=== PATIENT | male | born 1955 | race Caucasian/White ===

== ENCOUNTER 2019-02-23 12:16 | Emergency (ER) | END 2019-02-23 12:54 | disposition home or self-care (01) | DX: M19.90 Unspecified osteoarthritis, unspecified site (principal); Z79.1 Long term (current) use of non-steroidal anti-inflammatories (NSAID) | CPT/HCPCS: 96372; 99283; J1885 ==

== ENCOUNTER 2019-11-23 04:46 | Emergency (ER) | payer MEDICARE, OTHER ==
[~2019-11-23] VITALS: Ht 165.1 cm; Wt 70.3 kg
[~2019-11-23 04:46] MED LIST: IBUP-1953 PO
--- NOTE | 2019-11-23 05:05 | NUR ---
Patient presents to ER with c/o L hip pain /lower back pain since yesterday. States " Its sciatica".
[2019-11-23] MEDS ORDERED: HYDROCODONE/APAP 10-325 MG TABLET PO ONE (05:15)
[2019-11-23] MEDS ORDERED: ONDANSETRON ODT 4 MG TAB.RAPDIS SL ONE (05:15)
[2019-11-23] MEDS ORDERED: ONDANSETRON ODT 4 MG TAB.RAPDIS ONE (05:23)
[2019-11-23] MEDS ORDERED: HYDROCODONE/APAP 10-325 MG TABLET ONE (05:23)
--- NOTE | 2019-11-23 05:24 | NUR ---
Patient discharged to home in stable condition. Written and verbal after care instructions given. Patient verbalizes understanding of instructions. Stressed follow up or return to ER for worsening s/s. Ambulated from ER with stable gait. All belongings with patient.
--- NOTE | 2019-11-23 05:25 | NUR ---
Patient denies being homeless, but was provided with food/water. He had appropriate clothing.
[2019-11-23 05:26] VITALS: BP 135/81
== END 2019-11-23 05:33 | disposition home or self-care (01) ==
LOC: ER 04:50
DX: M54.42 Lumbago with sciatica, left side (principal); M19.90 Unspecified osteoarthritis, unspecified site; R03.0 Elevated blood-pressure reading, without diagnosis of hypertension; Z59.0 Homelessness
CPT/HCPCS: A4663; Q0162

== ENCOUNTER 2019-12-02 16:48 | Emergency (ER) | payer MEDICARE, OTHER ==
[~2019-12-02] VITALS: Ht 180.3 cm; Wt 70.3 kg
--- NOTE | 2019-12-02 17:46 | NUR ---
Patient was given written and verbal discharge instructions. Patient verbalizes understanding & compliance of instructions. Patient is ambulatory with steady gait. Patient refuses offer of long-term placement. Patient was given a list of available shelters in surrounding area.
== END 2019-12-02 17:54 | disposition home or self-care (01) ==
LOC: ER 16:50
DX: B86 Scabies (principal); Z59.0 Homelessness
CPT/HCPCS: A4663

== ENCOUNTER 2019-12-08 21:07 | Emergency (ER) | payer MEDICARE, OTHER ==
[~2019-12-08] VITALS: Ht 180.3 cm; Wt 68.0 kg
[2019-12-08] MEDS ORDERED: PERM60CR19 TP (21:16)
--- NOTE | 2019-12-08 21:36 | NUR ---
Patient given written and verbal discharge instructions. Patient verbalizes understanding of instructions. Patient is ambulatory with steady gait. Refuses offer of care home placement. Patient given list of available shelters in surrounding area.
[2019-12-08 21:46] VITALS: BP 140/99
== END 2019-12-08 21:48 | disposition home or self-care (01) ==
LOC: ER 21:07
DX: F22 Delusional disorders (principal); Z59.0 Homelessness
CPT/HCPCS: A4663

== ENCOUNTER 2019-12-23 01:53 | Emergency (ER) | payer MEDICARE, OTHER ==
[~2019-12-23] VITALS: Ht 180.3 cm; Wt 70.3 kg
[~2019-12-23 01:53] MED LIST changes: +PERM60CR19 TP
--- NOTE | 2019-12-23 02:10 | NUR ---
Dr. Nicolas at bedside for MSE.
[2019-12-23] MEDS ORDERED: TDAP DIPH,PERTUSS,TET VAC/PF 0.5 ML DISP.SYRIN IM ONE ×2 (02:15→02:21)
[2019-12-23] MEDS ORDERED: NEOMY/BACITRA/POLYMYXIN B OINT UD PACKET TP ONE (02:28)
--- NOTE | 2019-12-23 02:38 | NUR ---
Patient given written and verbal discharge instructions. Patient verbalizes understanding of instructions. Patient is ambulatory with steady gait. Refuses offer of senior living placement. Patient given list of available shelters in surrounding area. Patient provided with sandwich per pt request, refused all other services available at this time. Patient out of ER with steady gait, no acute signs of distress, VSS, all belongings taken.
[2019-12-23 02:40] VITALS: BP 148/97
== END 2019-12-23 02:40 | disposition home or self-care (01) ==
LOC: ER 01:55
DX: L03.114 Cellulitis of left upper limb (principal); L98.1 Factitial dermatitis; F22 Delusional disorders; Z59.0 Homelessness; R03.0 Elevated blood-pressure reading, without diagnosis of hypertension
CPT/HCPCS: 90715; A4663

== ENCOUNTER 2020-03-19 00:32 | Emergency (ER) | payer MEDICARE, OTHER ==
[~2020-03-19] VITALS: Ht 177.8 cm; Wt 68.0 kg
[2020-03-19] MEDS ORDERED: KETOROLAC TROMETHAMINE 30 MG INJ IM ONE (01:00)
[2020-03-19] MEDS ORDERED: KETOROLAC TROMETHAMINE 30 MG INJ ONE (01:08)
--- NOTE | 2020-03-19 01:09 | NUR ---
MSE COMPLETED,PT D/C'D HOME,A CI/RX X2 GIVEN. PT AMBULATED W/O DIFF, REFUSED HOMELESS SHELTOR HAND OUT/HELP.
[2020-03-19 01:11] VITALS: BP 148/95
== END 2020-03-19 01:12 | disposition home or self-care (01) ==
LOC: ER 00:39
DX: M54.32 Sciatica, left side (principal); Z59.0 Homelessness; M19.90 Unspecified osteoarthritis, unspecified site
CPT/HCPCS: 96372; 99283; J1885; A4663

== ENCOUNTER 2020-04-19 03:05 | Emergency (ER) | payer MEDICARE, OTHER ==
[~2020-04-19] VITALS: Ht 182.9 cm; Wt 68.0 kg
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
--- NOTE | 2020-04-19 03:26 | NUR ---
Dr. Park at bedside for MSE.
[2020-04-19] MEDS ORDERED: ACETAMINOPHEN 325 MG TABLET PO ONE (03:30)
[2020-04-19] MEDS ORDERED: ACETAMINOPHEN 325 MG TABLET ONE (03:34)
--- NOTE | 2020-04-19 04:26 | NUR ---
Patient discharged to home in stable condition. Written and verbal after care instructions given. Patient verbalizes understanding of instructions. Stressed follow up or return to ER for worsening s/s.P t ambulated out of the ER with steady gait. All belongings with pt.
[2020-04-19 04:27] VITALS: BP 140/88
== END 2020-04-19 04:27 | disposition home or self-care (01) ==
LOC: ER 03:10
DX: S46.911A Strain of unspecified muscle, fascia and tendon at shoulder and upper arm level, right arm, initial encounter (principal); S83.91XA Sprain of unspecified site of right knee, initial encounter; S70.02XA Contusion of left hip, initial encounter; V18.4XXA Pedal cycle driver injured in noncollision transport accident in traffic accident, initial encounter; Y93.55 Activity, bike riding; Y92.410 Unspecified street and highway as the place of occurrence of the external cause; Z59.0 Homelessness; R03.0 Elevated blood-pressure reading, without diagnosis of hypertension
CPT/HCPCS: 73030; 73502; 73560; A4663

== ENCOUNTER 2020-05-04 04:34 | Emergency (ER) | payer MEDICARE, OTHER ==
[~2020-05-04] VITALS: Ht 177.8 cm; Wt 68.0 kg
--- NOTE | 2020-05-04 04:50 | NUR ---
MD CHARU ENCARNACION in room to do MSE.
[2020-05-04] MEDS ORDERED: SULF1TAB48 PO (04:54)
[2020-05-04] MEDS ORDERED: SULFAMETH/TRIMETH 800/160 MG TABLET PO ONE (05:00)
[2020-05-04] MEDS ORDERED: SULFAMETH/TRIMETH 800/160 MG TABLET ONE (05:02)
[2020-05-04 05:20] VITALS: BP 150/96
== END 2020-05-04 05:20 | disposition home or self-care (01) ==
LOC: ER 04:35
DX: L03.114 Cellulitis of left upper limb (principal); F22 Delusional disorders; Z59.0 Homelessness; Z86.19 Personal history of other infectious and parasitic diseases; R03.0 Elevated blood-pressure reading, without diagnosis of hypertension
CPT/HCPCS: A4663

== ENCOUNTER 2020-07-19 23:08 | Emergency (ER) | payer MEDICARE, OTHER ==
[~2020-07-19] VITALS: Ht 177.8 cm; Wt 68.0 kg
[~2020-07-19 23:08] MED LIST changes: -IBUP-1953 PO; -PERM60CR19 TP; +SULF1TAB48 PO
[2020-07-19] MEDS ORDERED: MUPI22OI2 TP (23:59)
[2020-07-19] MEDS ORDERED: CLIN300C12 PO (23:59)
[2020-07-20 00:14] VITALS: BP 130/90
== END 2020-07-20 00:15 | disposition home or self-care (01) ==
LOC: ER 23:08
DX: L03.114 Cellulitis of left upper limb (principal); B95.8 Unspecified staphylococcus as the cause of diseases classified elsewhere; S60.51 Abrasion of hand; W50.4 Accidental scratch by another person; F15.150 Other stimulant abuse with stimulant-induced psychotic disorder with delusions; Z59.0 Homelessness
CPT/HCPCS: A4663

== ENCOUNTER 2020-09-20 22:09 | Emergency (ER) | payer MEDICARE, OTHER ==
[~2020-09-20 22:09] MED LIST changes: +CLIN300C12 PO; +MUPI22OI2 TP
--- NOTE | 2020-09-21 00:15 | NUR ---
Pt not in waiting room.
[2020-09-22] MEDS ORDERED: SULF1TAB48 PO (23:15)
== END 2020-09-21 00:56 | disposition left against medical advice (07) ==
LOC: ER 22:11
DX: Z53.21 Procedure and treatment not carried out due to patient leaving prior to being seen by health care provider (principal)

== ENCOUNTER 2020-09-22 22:24 | Emergency (ER) | payer MEDICARE, OTHER ==
[~2020-09-22] VITALS: Ht 170.2 cm; Wt 70.3 kg
--- NOTE | 2020-09-22 22:28 | NUR ---
Pt ambulated to ER for left arm swelling. Pt states he sees, " bugs and snakes coming out of my wound". No SOB or labored breathing, afebrile.
--- NOTE | 2020-09-22 22:50 | NUR ---
Dr. [facility] at bedside, MSE in progress.
[2020-09-22] MEDS ORDERED: SULF1TAB48 PO (23:15)
[2020-09-22] MEDS ORDERED: SULFAMETH/TRIMETH 800/160 MG TABLET PO ONE (23:15)
[2020-09-22] MEDS ORDERED: SULFAMETH/TRIMETH 800/160 MG TABLET ONE (23:27)
--- NOTE | 2020-09-22 23:28 | NUR ---
Patient given written and verbal discharge instructions. A/O x4, denies any pain/discomfort at this time. Patient verbalizes understanding of instructions. Patient is ambulatory with steady gait. Refuses offer of [facility] placement. Patient given list of available shelters in surrounding area.
[2020-09-22 23:31] VITALS: BP 122/73
== END 2020-09-22 23:30 | disposition home or self-care (01) ==
LOC: ER 22:29
DX: L03.114 Cellulitis of left upper limb (principal); F22 Delusional disorders; Z59.0 Homelessness
CPT/HCPCS: A4663

== ENCOUNTER 2021-01-04 03:59 | Emergency (ER) | payer MEDICARE, OTHER ==
[~2021-01-04] VITALS: Ht 177.8 cm; Wt 68.0 kg
[2021-01-04] MEDS ORDERED: LISI20TA PO (04:55)
[2021-01-04] MEDS ORDERED: SULF1TAB48 PO (04:55)
[2021-01-04] MEDS ORDERED: HALO2TAB PO (04:55)
[2021-01-04] MEDS ORDERED: CLONIDINE HCL 0.1 MG TABLET PO ONE (05:00)
[2021-01-04] MEDS ORDERED: CLONIDINE HCL 0.1 MG TABLET ONE (05:12)
--- NOTE | 2021-01-04 05:25 | NUR ---
Patient discharged to home in stable condition. Written and verbal after care instructions given. Patient verbalizes understanding of instructions. Stressed follow up or return to ER for worsening s/s.
[2021-01-04 05:42] VITALS: BP 152/98
== END 2021-01-04 05:25 | disposition home or self-care (01) ==
LOC: ER 04:07
DX: F22 Delusional disorders (principal); I10 Essential (primary) hypertension; L98.491 Non-pressure chronic ulcer of skin of other sites limited to breakdown of skin; Z59.00 Homelessness unspecified
CPT/HCPCS: 87070; 87077; A4663

== ENCOUNTER 2021-02-15 02:47 | Emergency (ER) | payer MEDICARE, OTHER ==
[~2021-02-15 02:47] MED LIST changes: +HALO2TAB PO; +LISI20TA PO
--- NOTE | 2021-02-15 05:56 | NUR ---
Pt not in waiting room.
== END 2021-02-15 05:56 | disposition left against medical advice (07) ==
LOC: ER 02:49
DX: Z53.21 Procedure and treatment not carried out due to patient leaving prior to being seen by health care provider (principal)

== ENCOUNTER 2021-03-05 23:07 | Emergency (ER) | payer MEDICARE, OTHER ==
[~2021-03-05] VITALS: Ht 170.2 cm; Wt 70.3 kg
--- NOTE | 2021-03-06 01:00 | NUR ---
AFTER BEING TRIAGED PATIENT WAS PLACED BACK TO WAITING ROOM DUE TO NO BEDS AVAILABLE IN THE ER.
--- NOTE | 2021-03-06 03:00 | NUR ---
Patient was called to be placed in room but was not present. Patient was triaged but was not seen by ERMD.
== END 2021-03-06 03:00 | disposition left against medical advice (07) ==
LOC: ER 23:10
DX: Z53.21 Procedure and treatment not carried out due to patient leaving prior to being seen by health care provider (principal)

== ENCOUNTER 2021-04-14 01:20 | Emergency (ER) | payer MEDICARE, OTHER ==
[~2021-04-14] VITALS: Ht 172.7 cm; Wt 68.0 kg
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
--- NOTE | 2021-04-14 01:30 | NUR ---
Line and fluids started on pt, labs collected and EKG performed by media strategist Adrian.
[2021-04-14] MEDS ORDERED: IV NORMAL SALINE 1000 ML BAG IV ONE (01:45)
[2021-04-14 02:44] LABS: *CLARITY,URINE CLEAR (CLEAR); *COLOR,URINE YELLOW (YELLOW); *KETONES,URINE TRACE (NEGATIVE); LEUKOCYTE ESTERASE ,URINE NEGATIVE (NEGATIVE); NITRITE, URINE NEGATIVE (NEGATIVE); PH,URINE 5.5 (5.0-8.0); UGLUCOSE NEGATIVE (NEGATIVE)
[2021-04-14 02:47] LABS: POTASSIUM 3.8 mmol/L (3.5-5.1)
[2021-04-14 02:52] LABS: *BILIRUBIN,URIN 1+ (NEGATIVE); *BLOOD, URINE TRACE (NEGATIVE)
[2021-04-14 03:00] LABS: BILIRUBIN,DIRECT 0.1 mg/dL (0.0-0.2); BILIRUBIN,TOTAL 0.5 mg/dL (0.2-1.0); TOTAL PROTEIN, SERUM 7.4 g/dL (6.4-8.2)
--- NOTE | 2021-04-14 03:00 | NUR ---
Pt sleeping soundly with audible snoring. VSS, SaO2 97% RA.
[2021-04-14 04:10] LABS: HEMATOCRIT 37.4 % (36.7-47.1); MEAN CORPUSCULAR VOLUME 95.5 fL (73.0-96.2)
[2021-04-14 04:11] LABS: MEAN CORPUSCULAR HEMOGLOBIN 32.2 uug (23.8-33.4); PLATELET COUNT (AUTO) 220 K/uL (152-348)
[2021-04-14] MEDS ORDERED: ASPIRIN 325 MG TABLET PO ONE (04:15)
[2021-04-14] MEDS ORDERED: ASPIRIN 325 MG TABLET ONE (04:25)
--- NOTE | 2021-04-14 05:20 | NUR ---
Mary Lin from pt's insurance called and said that [facility] does not except pts insurance and that the only hospital that is willing to and able to accept pt is [facility] in [facility]. I asked pt if he will accept being tranfered to [facility] and he refused and said he does not care to go. I informed and educated the pt on his condition and the severity of consequenses that canb result from not getting his condition treated. Pt confirmed understanding of admitting dx and acknowledged risks of not going to and getting his heart failure treated. Pt was still ademant about not going to [facility]. Pt given AMA form and signed out. Pt given a sandwich bag lunch with pudding, juice, apple sause, dean crackers. pt eating food and preparing to leave AMA.
--- NOTE | 2021-04-14 06:20 | NUR ---
Pt signed out AMA and ambulated out of dept with steady gait. VSS, no s/sx of distress present.
[2021-04-14 06:36] VITALS: BP 128/91
[2021-04-14 12:21] LABS: BACTERIA,URINE NONE SEEN /HPF (NONE SEEN); CALCIUM OXALATE CRYSTALS,UR FEW /HPF (NONE SEEN); RBC,URINE 0-3 /HPF (0-3); SQUAMOUS EPITHELIAL CELL,UR NONE SEEN /HPF (NONE SEEN); URINE AMORPHOUS URATE MODERATE /HPF; WBC,URINE NONE SEEN /HPF (0-3)
== END 2021-04-14 10:39 | disposition left against medical advice (07) ==
LOC: ER 01:28
DX: I50.9 Heart failure, unspecified (principal); R53.1 Weakness; R06.02 Shortness of breath; R05.9 Cough, unspecified; Z90.89 Acquired absence of other organs; Z79.899 Other long term (current) drug therapy; Z79.2 Long term (current) use of antibiotics; Z20.822 Contact with and (suspected) exposure to COVID-19
CPT/HCPCS: 36415; 70030-TC; 71045; 83605; 84443; 85025; 85730; 87040; 87086; 93005; A4663; J7030

== ENCOUNTER 2021-05-11 23:27 | Emergency (ER) | payer MEDICARE, OTHER ==
[~2021-05-11] VITALS: Ht 177.8 cm; Wt 68.0 kg
[~2021-05-11 23:27] MED LIST changes: -CLIN300C12 PO; -HALO2TAB PO; -MUPI22OI2 TP; -SULF1TAB48 PO
--- NOTE | 2021-05-11 23:30 | NUR ---
Pt not in waiting room, belongings on chair.
--- NOTE | 2021-05-11 23:55 | NUR ---
Patient walked into ER for C/O SOB that started 1 week ago but worse today. Patient able to speak in full sentance but states gets SOB upon exertion. Denies CP, N/V at this time. Placed in room 4B.
--- NOTE | 2021-05-12 00:05 | NUR ---
ERMD into eval patient.
[2021-05-12] MEDS ORDERED: ASPIRIN 81 MG TAB.CHEW PO ONE (00:15)
[2021-05-12] MEDS ORDERED: ASPIRIN 81 MG TAB.CHEW ONE (00:25)
[2021-05-12] MEDS ORDERED: FUROSEMIDE 40 MG/4 ML VIAL IV ONE (00:30)
[2021-05-12 00:31] LABS: HEMATOCRIT 38.4 % (36.7-47.1); MEAN CORPUSCULAR HEMOGLOBIN 31.8 uug (23.8-33.4); MEAN CORPUSCULAR VOLUME 96.4 fL (73.0-96.2); PLATELET COUNT (AUTO) 225 K/uL (152-348)
[2021-05-12 00:34] LABS: CARBON DIOXIDE 28 mmol/L (21-32); CHLORIDE 108 mmol/L (98-107); CREATININE 1.2 mg/dL (0.6-1.3); GLUCOSE 95 mg/dL (74-106); POTASSIUM 3.6 mmol/L (3.5-5.1); UREA NITROGEN, BLOOD 23 mg/dL (7-18)
[2021-05-12] MEDS ORDERED: FUROSEMIDE 40 MG/4 ML VIAL ONE (00:42)
[2021-05-12 00:47] LABS: ALANINE AMINOTRANSFERASE 46 U/L (16-63); ALKALINE PHOSPHATASE 84 U/L (50-136); ASPARTATE AMINOTRANSFERASE 29 U/L (15-37); BILIRUBIN,DIRECT 0.3 mg/dL (0.0-0.2); BILIRUBIN,TOTAL 1.1 mg/dL (0.2-1.0); TOTAL PROTEIN, SERUM 6.6 g/dL (6.4-8.2)
[2021-05-12 01:19] LABS: MAGNESIUM 1.9 mg/dL (1.8-2.4)
[2021-05-12 01:32] LABS: THYROID STIMULATING HORMONE 1.865 mIU/mL (0.358-3.740)
--- NOTE | 2021-05-12 02:10 | NUR ---
Patient requires admission, however patient is capitated to [facility]. Waiting on insurance to call back with transfer info or authorization for admission.
--- NOTE | 2021-05-12 03:00 | NUR ---
Patient sleeping with no distress noted at this time.
--- NOTE | 2021-05-12 03:24 | NUR ---
Dr Andrade spoke with Dr Groves , hospitalist from [facility] who will check if Tele bed is available at [facility].
--- NOTE | 2021-05-12 04:25 | NUR ---
Cisco, director case from [facility] gave auth #[id number] for ambulance transfer to [facility].
--- NOTE | 2021-05-12 04:26 | NUR ---
Cisco, case assistant from [facility] only gave authorization to use [facility] to transport patient to [facility].
--- NOTE | 2021-05-12 04:27 | NUR ---
Called [facility] for transfer, but no units available to transfer patient to [facility].
--- NOTE | 2021-05-12 04:30 | NUR ---
Called [facility] who states no available unit until after 1200 noon.
--- NOTE | 2021-05-12 04:39 | NUR ---
[facility] and gave an ETA of [phone] in the afternoon.
--- NOTE | 2021-05-12 05:01 | NUR ---
Sarah, lead [facility] manager [facility]. Patient will be going to [facility] Tele hold. Dr Groves is accepting MD. Call for report is .
--- NOTE | 2021-05-12 06:22 | NUR ---
Gave SBAR report to Rosa M, charge nurse from [facility].
--- NOTE | 2021-05-12 10:33 | NUR ---
late entry: recieved pt in bed resting arousable. pt voided multiple times, pt ambulates with steady gait. breakfast provided for pt.
--- NOTE | 2021-05-12 10:35 | NUR ---
Patient does not wish to proceed with medical care recommended by Dr. owen ). Patient given information related to possible complications, up to and including , which could occur as a result of leaving the hospital at this time. Patient verbalizes understanding of risks involved due to leaving against medical advice. Patient has signed AMA form. pt says that has a place to go and has resources. pt denies to be homeless.
--- NOTE | 2021-05-12 10:58 | NUR ---
[facility] and cancelled the trip.
== END 2021-05-12 06:22 | disposition left against medical advice (07) ==
LOC: ER 23:36
DX: I11.0 Hypertensive heart disease with heart failure (principal); I50.9 Heart failure, unspecified; R00.0 Tachycardia, unspecified; R94.31 Abnormal electrocardiogram [ECG] [EKG]; Z20.822 Contact with and (suspected) exposure to COVID-19; Z59.00 Homelessness unspecified
CPT/HCPCS: 36415; 71045; 80048; 80076; 83735; 83880; 84443; 84484; 85025; 85379; 85730; 87426; 93005; 96374; 99291; J1940; A4663

== ENCOUNTER 2021-06-25 22:28 | Inpatient (IN) | payer MEDICARE, OTHER ==
[~2021-06-25] VITALS: Ht 177.8 cm; Wt 68.9 kg
--- NOTE | 2021-06-25 22:45 | NUR ---
Patient walked into ER c/o SOB, lower leg wound, and swollen genitalia. Patient is A/Ox4, denies CP and headache, denies n/v.
[2021-06-25] MEDS ORDERED: ZIPRASIDONE MESYLATE 20 MG VIAL IM ONE ×2 (23:38→23:45)
[2021-06-25] MEDS ORDERED: FUROSEMIDE 40 MG/4 ML VIAL IV ONE (23:45)
[2021-06-25] MEDS ORDERED: NITROGLYCERIN 0.4 MG/TAB BOTTLE SL ONE ×2 (23:45→23:58)
[2021-06-25 23:55] LABS: HEMATOCRIT 44.1 % (36.7-47.1); MEAN CORPUSCULAR HEMOGLOBIN 32.4 uug (23.8-33.4); MEAN CORPUSCULAR VOLUME 96.3 fL (73.0-96.2); PLATELET COUNT (AUTO) 238 K/uL (152-348)
[2021-06-25] MEDS ORDERED: FUROSEMIDE 40 MG/4 ML VIAL ONE (23:59)
[2021-06-26 00:06] LABS: ALANINE AMINOTRANSFERASE 31 U/L (16-63); ALKALINE PHOSPHATASE 116 U/L (50-136); ASPARTATE AMINOTRANSFERASE 24 U/L (15-37); BILIRUBIN,DIRECT 0.3 mg/dL (0.0-0.2); BILIRUBIN,TOTAL 0.8 mg/dL (0.2-1.0); CARBON DIOXIDE 24 mmol/L (21-32); CHLORIDE 107 mmol/L (98-107); CREATININE 1.3 mg/dL (0.6-1.3); GLUCOSE 88 mg/dL (74-106); POTASSIUM 4.1 mmol/L (3.5-5.1); TOTAL PROTEIN, SERUM 6.8 g/dL (6.4-8.2); UREA NITROGEN, BLOOD 30 mg/dL (7-18)
[2021-06-26 01:25] LABS: ETHANOL < 3 MG/DL (0-0)
--- NOTE | 2021-06-26 02:07 | NUR ---
Called [facility] for panel call.
[2021-06-26 02:10] LABS: *AMPHETAMINE, URINE POSITIVE (NEGATIVE); *CANNABINOID, URINE NEGATIVE (NEGATIVE); *COCCAINE, URINE NEGATIVE (NEGATIVE); *OPIATE, URINE NEGATIVE (NEGATIVE); *PHENCYCLIDINE SCREEN,URINE NEGATIVE (NEGATIVE)
[2021-06-26] MEDS ORDERED: ONDANSETRON 4 MG/2 ML VIAL IV PRN (02:15)
[2021-06-26] MEDS ORDERED: REMEDY ESSENTIAL ZINC PASTE 113 GM TP PRN (02:15)
[2021-06-26] MEDS ORDERED: FUROSEMIDE 40 MG/4 ML VIAL IV ONE ×2 (02:15→04:45)
[2021-06-26] MEDS ORDERED: MAGNESIUM HYDROXIDE 30 ML LIQUID UDC PO PRN (02:15)
[2021-06-26] MEDS ORDERED: LORAZEPAM 2 MG/1 ML VIAL IV PRN (02:15)
[2021-06-26] MEDS ORDERED: ACETAMINOPHEN 325 MG TABLET PO PRN (02:15)
--- NOTE | 2021-06-26 02:22 | NUR ---
called for bed. patient will go to tele room 316
[2021-06-26] MEDS ORDERED: CEFTRIAXONE /D5W 50ML IVPB **ER PYXIS IV ONE (02:25)
[2021-06-26] MEDS ORDERED: CEFTRIAXONE 1 G in IV DEXTROSE 5% 50 ML IV ONE (02:30)
[2021-06-26] MEDS ORDERED: AZITHROMYCIN IV 500 MG in IV DEXTROSE 5% 250 ML IV ONE (02:30)
--- NOTE | 2021-06-26 02:55 | NUR ---
Report given to Donna SIERRA
[2021-06-26] MEDS ORDERED: AZITHROMYCIN 500MG/ D5W 250ML IVPB **ER PYXIS ONLY IV ONE (03:05)
--- NOTE | 2021-06-26 03:35 | NUR ---
Pt. admitted to tele room 316 , under care of Dr. Modi Belongs List completed Donna RN aware of patient's arrival
[2021-06-26 04:00] VITALS: BP 131/97
--- NOTE | 2021-06-26 05:29 | NUR ---
Admitted patient to Tele unit from ER via natalya.Dx of CHF .Alert x 3-4.Calm at this time.On Ra sating at 95 %.Denies SOB at this time.No chest pain. Iv on right AC 20 g with IV ATB running. Sinus Tachy on Tele with HR of 113.Lasix order 40 mg IV clarified with MERCERIZING RANGE FEEDER gabriel Palma to give 4hrs after the last one. Patient able to use urinal .Voided well.Multiple wound noted on oralia lower ext. Edema +2 on bilateral feet. Elevated with pillow. Safety measures in place. Call light with in reach.
[2021-06-26 06:19] VITALS: BP 133/90
[2021-06-26] MEDS ORDERED: FUROSEMIDE 40 MG/4 ML VIAL IV SCH (07:45)
--- NOTE | 2021-06-26 08:30 | NUR ---
Patient has decided to leave against medical advice. Explained the risks of leaving the hospital without being treated, such as worsening of condition and adverse outcomes. Patient able to understand and state risks and benefits of staying in the hospital. Patient was provided opportunity to have questions answered in regards to medical condition. Dr. Saunders notified about patient's decision.
[2021-06-26] MEDS ORDERED: ENOXAPARIN SODIUM 40 MG/0.4 ML DISP.SYRIN SQ SCH (09:00)
[2021-06-26] MEDS ORDERED: APIXABAN 5 MG TABLET PO SCH (09:00)
[2021-06-27] MEDS ORDERED: CEFTRIAXONE 500 MG in IV DEXTROSE 5% 50 ML IV SCH (02:00)
== END 2021-06-26 08:45 | disposition left against medical advice (07) | DRG 291 ==
LOC: ER 22:31 → TELE3 06-26 03:07
PROVIDERS: ADMIT Family Medicine; ATTEND Family Medicine
DX: I11.0 Hypertensive heart disease with heart failure (principal); I50.23 Acute on chronic systolic (congestive) heart failure; N17.0 Acute kidney failure with tubular necrosis; E87.2 Acidosis; E44.0 Moderate protein-calorie malnutrition; J98.11 Atelectasis; G93.40 Encephalopathy, unspecified; J90 Pleural effusion, not elsewhere classified; I42.0 Dilated cardiomyopathy; Z59.00 Homelessness unspecified; R74.01 Elevation of levels of liver transaminase levels; E80.6 Other disorders of bilirubin metabolism; E88.09 Other disorders of plasma-protein metabolism, not elsewhere classified; Z86.711 Personal history of pulmonary embolism; Z91.19 Patient's noncompliance with other medical treatment and regimen; F15.10 Other stimulant abuse, uncomplicated; F22 Delusional disorders; Z68.21 Body mass index [BMI] 21.0-21.9, adult; Z20.822 Contact with and (suspected) exposure to COVID-19
CPT/HCPCS: 36415; 71045; 83605; 84484; 85025; 93005; G0378; G0480; J0456; J0696; J1940; J3486

== ENCOUNTER 2021-07-27 22:39 | Emergency (ER) | payer MEDICARE, OTHER ==
[~2021-07-27] VITALS: Ht 177.8 cm; Wt 79.4 kg
[2021-07-27] MEDS ORDERED: VANCOMYCIN IV 1,000 MG in IV DEXTROSE 5% 250 ML IV ONE (23:00)
[2021-07-27] MEDS ORDERED: PIPERACILLIN SODIUM/TAZOBACTAM 3.375 G in IV DEXTROSE 5% 50 ML IV ONE (23:00)
[2021-07-27] MEDS ORDERED: IV NORMAL SALINE 1000 ML BAG IV ONE (23:00)
[2021-07-27 23:22] LABS: MEAN CORPUSCULAR HEMOGLOBIN 32.2 uug (23.8-33.4); MEAN CORPUSCULAR VOLUME 97.3 fL (73.0-96.2); PLATELET COUNT (AUTO) 188 K/uL (152-348)
[2021-07-27 23:24] LABS: CREATININE 1.2 mg/dL (0.6-1.3); POTASSIUM 3.9 mmol/L (3.5-5.1)
[2021-07-27 23:37] LABS: BILIRUBIN,DIRECT 0.7 mg/dL (0.0-0.2); BILIRUBIN,TOTAL 1.5 mg/dL (0.2-1.0); TOTAL PROTEIN, SERUM 6.7 g/dL (6.4-8.2)
[2021-07-28] MEDS ORDERED: IV NORMAL SALINE 500 ML BAG IV ONE
[2021-07-28] MEDS ORDERED: PIPERACILLIN/TAZOBACTAM/D5W 50 ML IV ONE (00:30)
[2021-07-28] MEDS ORDERED: VANCOMYCIN IV 200 ML ONE (00:31)
--- NOTE | 2021-07-28 03:45 | NUR ---
Diesel Truck Mechanic from [facility] called back with transfer info. Patient will be going to [address] [place] [address]. Call for report is .
--- NOTE | 2021-07-28 05:00 | NUR ---
[facility] will be arriving shortly to tranport pt to [facility], Nurse Javier accepting. Thorough report already given to Javier RN, using SBAR method. All questions answered, Nurse Herrera gave green light to tranfer pt. Currently waiting on transport to arrive. Radiology CD copied along with summury report and placed in pt folder. Pt loaded up and prepared for tranfer. VSS, Pt in good spirits, very thankful for services rendered. No s/sxof distress present.
--- NOTE | 2021-07-28 05:50 | NUR ---
pharmacy salesperson arrived to parts picker pt. pharmacy salesperson at bedside gathing vs and loading up the pt. Packet is being prepared.
[2021-07-28 06:08] LABS: *BILIRUBIN,URIN NEGATIVE (NEGATIVE); *BLOOD, URINE NEGATIVE (NEGATIVE); *CLARITY,URINE CLEAR (CLEAR); *COLOR,URINE YELLOW (YELLOW); *KETONES,URINE NEGATIVE (NEGATIVE); LEUKOCYTE ESTERASE ,URINE NEGATIVE (NEGATIVE); NITRITE, URINE NEGATIVE (NEGATIVE); PH,URINE 5.5 (5.0-8.0); UGLUCOSE NEGATIVE (NEGATIVE)
--- NOTE | 2021-07-28 06:21 | NUR ---
Pt loaded up onto amb stretcher [facility]. All possessions accounted for. VSS, pt denies pain when sitting still, mod pain upon movement and manipulation. Pt is aaox3, with desheveled and grimmy appearance. Pt given dinner tray approx 10 min before paving block cutter arrived, partially ate dinner and saved the rest to eat at his destination. Pt sating well, SaO2 <92. No complaints of sob, n/v, dizziness. Pt is in considerable discomfort in the upper ext. bilat and can barely move them, needs asistance to feed himself and with ADL. Pt has very poor ROM in all four ext. Pt very greatful for the care he received. Pt encouraged to make a serious lifestyle change and turn his life around. Words of motivation given to him. Pt acknowledged. No s/sx of distress present.
== END 2021-07-28 07:47 | disposition short-term general hospital (02) ==
LOC: ER 22:43
DX: L03.90 Cellulitis, unspecified (principal); I11.0 Hypertensive heart disease with heart failure; L55.9 Sunburn, unspecified; I50.9 Heart failure, unspecified; Z59.00 Homelessness unspecified; Z20.822 Contact with and (suspected) exposure to COVID-19
CPT/HCPCS: 36415 ×2; 71045; 80048; 80076; 80320; 81003; 83605 ×2; 83880; 84145; 85025; 85730; 87040 ×2; 87086; 87426; 93005; 96365; 96366; 96368; 99291; J2543; J3370; J7040; A4663; G0480

== ENCOUNTER 2021-08-06 00:29 | Emergency (ER) | payer OTHER, MEDICARE ==
[~2021-08-06] VITALS: Ht 177.8 cm; Wt 79.4 kg
--- NOTE | 2021-08-06 01:23 | NUR ---
Dr Nicolas at bedside, MSE in progress.
[2021-08-06] MEDS ORDERED: VANCOMYCIN IV 1,000 MG in IV DEXTROSE 5% 250 ML IV ONE (01:30)
[2021-08-06] MEDS ORDERED: MORPHINE SULFATE 4 MG/1 ML DISP.SYRIN IV ONE (01:30)
[2021-08-06] MEDS ORDERED: OLANZAPINE 5 MG TABLET PO ONE (01:30)
[2021-08-06] MEDS ORDERED: ONDANSETRON 4 MG/2 ML VIAL IV ONE (01:30)
[2021-08-06] MEDS ORDERED: MORPHINE SULFATE 4 MG/1 ML DISP.SYRIN ONE (02:01)
[2021-08-06] MEDS ORDERED: VANCOMYCIN IV 200 ML ONE (02:01)
[2021-08-06] MEDS ORDERED: OLANZAPINE 5 MG TABLET ONE (02:01)
[2021-08-06] MEDS ORDERED: ONDANSETRON 4 MG/2 ML VIAL ONE ×2 (02:01→02:02)
[2021-08-06 02:10] LABS: HEMATOCRIT 41.5 % (36.7-47.1); MEAN CORPUSCULAR HEMOGLOBIN 31.6 uug (23.8-33.4); MEAN CORPUSCULAR VOLUME 94.6 fL (73.0-96.2); PLATELET COUNT (AUTO) 250 K/uL (152-348)
[2021-08-06 02:11] LABS: MAGNESIUM 1.5 mg/dL (1.8-2.4)
[2021-08-06 02:12] LABS: CREATININE 0.9 mg/dL (0.6-1.3); POTASSIUM 3.2 mmol/L (3.5-5.1)
[2021-08-06 02:24] LABS: BILIRUBIN,DIRECT 0.3 mg/dL (0.0-0.2); BILIRUBIN,TOTAL 0.7 mg/dL (0.2-1.0); TOTAL PROTEIN, SERUM 5.8 g/dL (6.4-8.2)
[2021-08-06] MEDS ORDERED: IV NORMAL SALINE 1000 ML BAG IV ONE (02:30)
--- NOTE | 2021-08-06 03:08 | NUR ---
NS discontinued after 500cc as per MD order.
[2021-08-06] MEDS ORDERED: MAGNESIUM SULFATE/D5W 100 ML ONE (06:24)
[2021-08-06] MEDS ORDERED: MAGNESIUM SULFATE/D5W 100 ML IV SCH (06:30)
--- NOTE | 2021-08-06 07:42 | NUR ---
1st bag finished at 0735, second bag started.
--- NOTE | 2021-08-06 08:06 | NUR ---
Pt. sleeping in bed, no distress noted.
--- NOTE | 2021-08-06 08:35 | NUR ---
Magnesium finished infusing.
--- NOTE | 2021-08-06 09:00 | NUR ---
Gave pt breakfast tray.
--- NOTE | 2021-08-06 10:30 | NUR ---
Faxed summary report to [facility] .
[2021-08-06] MEDS ORDERED: CEPH500T PO (11:04)
[2021-08-06] MEDS ORDERED: SULF1TAB48 PO (11:04)
--- NOTE | 2021-08-06 11:28 | NUR ---
Removed IV intact, site okay, bandaged. Pt signed out AMA. Gave pt RX and d/c instructions, pt verbalized understanding.
[2021-08-06 11:32] VITALS: BP 104/65
== END 2021-08-06 11:34 | disposition left against medical advice (07) ==
LOC: ER 00:32
DX: L03.90 Cellulitis, unspecified (principal); L26 Exfoliative dermatitis; E83.42 Hypomagnesemia; E87.6 Hypokalemia; Z59.00 Homelessness unspecified; E86.0 Dehydration; F10.129 Alcohol abuse with intoxication, unspecified; Y90.6 Blood alcohol level of 120-199 mg/100 ml; E46 Unspecified protein-calorie malnutrition; Z68.25 Body mass index [BMI] 25.0-25.9, adult; R79.89 Other specified abnormal findings of blood chemistry; Z53.29 Procedure and treatment not carried out because of patient's decision for other reasons; Z20.822 Contact with and (suspected) exposure to COVID-19
CPT/HCPCS: 36415; 71045; 80048; 80076; 80320; 83605 ×2; 83735; 83880; 85025; 85730; 87040 ×2; 87426; 93005; 96361; 96365; 96366; 96375; 99285; J2270; J2405 ×2; J3370; J3475; J7040; A4663; G0480

== ENCOUNTER 2021-09-09 21:48 | Emergency (ER) | payer MEDICARE, OTHER ==
[~2021-09-09] VITALS: Ht 177.8 cm; Wt 79.4 kg
[~2021-09-09 21:48] MED LIST changes: +CEPH500T PO; -LISI20TA PO; +SULF1TAB48 PO
--- NOTE | 2021-09-09 22:40 | NUR ---
LAB AT BEDSIDE.
[2021-09-09] MEDS ORDERED: VANCOMYCIN 1G/D5W 200 ML PIGGYBACK IV ONE (22:45)
[2021-09-09] MEDS ORDERED: PIPERACILLIN SODIUM/TAZOBACTAM 3.375 G in IV DEXTROSE 5% 50 ML IV ONE (22:45)
[2021-09-09 22:47] LABS: HEMATOCRIT 36.3 % (36.7-47.1); MEAN CORPUSCULAR HEMOGLOBIN 32.4 uug (23.8-33.4); MEAN CORPUSCULAR VOLUME 98.4 fL (73.0-96.2); PLATELET COUNT (AUTO) 307 K/uL (152-348)
[2021-09-09] MEDS ORDERED: VANCOMYCIN IV 200 ML ONE (22:53)
[2021-09-09] MEDS ORDERED: PIPERACILLIN/TAZOBACTAM/D5W 50 ML IV ONE (22:53)
[2021-09-09 22:56] LABS: CREATININE 1.1 mg/dL (0.6-1.3); POTASSIUM 3.5 mmol/L (3.5-5.1)
--- NOTE | 2021-09-09 22:58 | NUR ---
XRAY AT BEDSIDE.
[2021-09-09] MEDS ORDERED: KETOROLAC TROMETHAMINE 30 MG INJ ONE (22:59)
[2021-09-09] MEDS ORDERED: KETOROLAC TROMETHAMINE 30 MG INJ IVP ONE (23:00)
[2021-09-09 23:02] LABS: BILIRUBIN,DIRECT 0.3 mg/dL (0.0-0.2); BILIRUBIN,TOTAL 0.5 mg/dL (0.2-1.0); TOTAL PROTEIN, SERUM 5.7 g/dL (6.4-8.2)
[2021-09-09] MEDS ORDERED: IV NORMAL SALINE 500 ML IV ONE (23:30)
--- NOTE | 2021-09-10 00:17 | NUR ---
PT RESTING COMFORTABLY IN BED, EYES CLOSED. BREATHING EVEN AND UNLABORED.
--- NOTE | 2021-09-10 02:27 | NUR ---
RECEIVED CALL BACK FROM [facility] WITH [facility], PT ACCEPTED TO [facility] ACCEPTING DR. MURRIETA ROOM 9906 REPORT # [phone]
--- NOTE | 2021-09-10 02:40 | NUR ---
CALLED [facility] AND SPOKE WITH NEGIN PROVIDED WITH TRANSPORTATION AT 0330.
--- NOTE | 2021-09-10 02:58 | NUR ---
GAVE REPORT TO MANPREET SIERRA FROM [facility].
--- NOTE | 2021-09-10 02:59 | NUR ---
PER MANPREET ROOM CHANGED TO 2252.
--- NOTE | 2021-09-10 03:35 | NUR ---
Gave SBAR report to [facility] ambulance who will take patient to [facility].
--- NOTE | 2021-09-10 03:49 | NUR ---
Patient Tranfers to outside Facility Physician: Germain Location: [facility] Room 2252 Pt transfered in stable condition, no SOB or labored breathing, afebrile. No changes in LOC.
== END 2021-09-10 03:53 | disposition short-term general hospital (02) ==
LOC: ER 21:51
DX: L03.116 Cellulitis of left lower limb (principal); G56.32 Lesion of radial nerve, left upper limb; Z59.00 Homelessness unspecified; R00.0 Tachycardia, unspecified; R94.31 Abnormal electrocardiogram [ECG] [EKG]; D64.9 Anemia, unspecified; F19.10 Other psychoactive substance abuse, uncomplicated; L97.929 Non-pressure chronic ulcer of unspecified part of left lower leg with unspecified severity; Z20.822 Contact with and (suspected) exposure to COVID-19
CPT/HCPCS: 36415 ×2; 73590; 80048; 80076; 83605 ×2; 85025; 87040 ×2; 87426; 93005; 96365; 96368; 96375; 99285; J1885; J2543; J3370; J7040; A4663